=== PATIENT | female | born 1965 | race Native Hawaiian/Other Pacific Islander ===

== ENCOUNTER 2016-11-14 22:02 | Emergency (ER) | payer BC ==
[~2016-11-14] VITALS: Ht 144.8 cm; Wt 63.0 kg
[2016-11-14 23:49] VITALS: BP 124/78; TEMP 97.4
== END 2016-11-14 23:56 ==
LOC: ED 22:02
DX: M54.9 Dorsalgia, unspecified (principal); M13.862 Other specified arthritis, left knee; M13.861 Other specified arthritis, right knee; M21.612 Bunion of left foot; M21.611 Bunion of right foot
CPT/HCPCS: 99282

== ENCOUNTER 2017-04-17 07:52 | Day surgery (SDC) | payer BC ==
[2017-04-11 11:44] LABS: PLATELET COUNT 259 K/uL (152-353)
[2017-04-11 11:50] LABS: PARTIAL THROMBOPLASTIN TIME 25.3 SECONDS (24.5-33.6)
[~2017-04-17] VITALS: Ht 30.5 cm; Wt 0.5 kg
== END 2017-04-17 10:27 | disposition home or self-care (01) ==
LOC: OR 07:52
PROVIDERS: Student in an Organized Health Care Education/Training Program
PROC: 0DJD8ZZ Inspection of Lower Intestinal Tract, Via Natural or Artificial Opening Endoscopic (ICD-10-PCS; principal; 2017-04-17)
DX: K57.30 Diverticulosis of large intestine without perforation or abscess without bleeding (principal); K64.8 Other hemorrhoids
CPT/HCPCS: 36415; 80053; 85027; 85610; 85730; J2001; J2250; J2704; J3010; J3490

== ENCOUNTER 2017-04-19 08:25 | Outpatient (CLI) | payer BC | END 2017-04-19 19:14 | disposition home or self-care (01) | LOC: US 08:25 | DX: R10.9 Unspecified abdominal pain (principal) ==

== ENCOUNTER 2017-04-20 13:35 | Emergency (ER) | payer BC ==
[~2017-04-20] VITALS: Ht 144.8 cm; Wt 61.2 kg
[2017-04-20 14:49] LABS: PLATELET COUNT 286 K/uL (152-353)
[2017-04-20 16:00] VITALS: TEMP 98.6
[2017-04-20 18:00] VITALS: BP 128/69
== END 2017-04-20 18:00 | disposition home or self-care (01) ==
LOC: ED 13:35
PROVIDERS: Emergency Medicine
DX: K52.9 Noninfective gastroenteritis and colitis, unspecified (principal); Z98.890 Other specified postprocedural states
CPT/HCPCS: 36415; 80053; 81000; 83690; 85027; 96361; 96365; 96375; 99284; J2270; J2405; Q9963